=== PATIENT | male | born 2000 | race Caucasian/White ===

== ENCOUNTER 2020-08-12 02:03 | Emergency (ER) | payer OTHER ==
[~2020-08-12] VITALS: Ht 175.3 cm; Wt 100.9 kg
[2020-08-12] MEDS ORDERED: MORPHINE SULFATE 2 MG/ML DISP.SYRIN. IM ONE (02:30)
[2020-08-12] MEDS ORDERED: MORPHINE SULFATE 4 MG/ML DISP.SYRIN. IM ONE (02:30)
[2020-08-12] MEDS ORDERED: HYDR-2155 PO (02:37)
--- NOTE | 2020-08-12 02:37 | PHYS DOC ---
Adult General HPI HPI Patient is an otherwise healthy 20-year-old male, in the who presents to the emergency department with a chief complaint of right leg pain, 7 out of 10, dull and achy in nature that starts at his right outer hip and goes down to his right knee. States he was exercising/running just before coming into the [facility] [facility] department for training, and stepped wrong and a little hole ground and twisted his leg. States he did not hear anything pop or break but says he twisted if he had the pain described. States he is able to put weight on it but it causes him some pain. Denies any other injuries. Review of Systems Review of Systems Review of systems otherwise unremarkable except noted in HPI Allergies Allergies Allergies Coded Allergies Type Severity Reaction Last Updated Verified No Known Drug Allergies 08/12/20 No Physical Exam Physical Exam Constitutional: Well developed, well nourished, no acute distress, non-toxic appearance. [] HENT: Normocephalic, atraumatic, Neck: Normal range of motion, no tenderness, Cardiovascular:Heart rate regular rhythm, no murmur [] Lungs & Thorax: Bilateral breath sounds clear to auscultation [] Abdomen: soft, no tenderness, no masses, no pulsatile masses. [] Skin: Warm, dry, no erythema, no rash. [] Back: No tenderness, Extremities: Right lower extremity starting at proximal posterior thigh radiating down to the back of the right knee tenderness on palpation. Able to extend actively and passively but with pain in the same area. Able to flex without issue and states it is more comfortable flexed. No obvious bruising or deformities. Neurovascular exam intact. Neurologic: Alert and oriented X 3, no focal deficits noted. [] Psychologic: Affect normal, judgement normal, mood normal. [] EKG EKG [] Radiology/Procedures Radiology/Procedures [] Heart Score C/O Chest Pain: No Risk Factors: Risk Factors: DM, Current or recent (<one month) smoker, HTN, HLP, family history of CAD, obesity. Risk Scores: Risk Factors: DM, Current or recent (<one month) smoker, HTN, HLP, family history of CAD, obesity. Course & Med Decision Making Course & Med Decision Making Patient is a 20-year-old male who presents with right lower extremity pain after an injury while running/training Vital signs notable for hypertension. Physical exam noted above. Patient given morphine for pain. Imaging with no acute osseous abnormalities. Exam suggestive of muscle/tendon, or soft tissue injury. Placed in a knee immobilizer and given crutches. Discussed pain management at home. Gave advice on protecting injury. Advised to call [facility] care [facility] for second morning to update on ED visit and set up a follow-up for MRI. Gave contact information for [facility] and advised to call first thing in the morning to set up a follow-up visit for MRI. Gave return precautions to the emergency department. Patient grateful, verbalized understanding and agreed with plan of discharge. Dragon Disclaimer Dragon Disclaimer This electronic medical record was generated, in whole or in part, using a voice recognition dictation system. Departure Departure: Impression: Primary Impression: Right leg pain Disposition: HOME / SELF CARE / HOMELESS Condition: IMPROVED Referrals: PCP,UNKNOWN (PCP) AMPARO HERNANDEZ MD Patient Instructions: Cervical Strain and Sprain with Rehab-Sports[facility], Groin Strain, Hamstring Strain, Joint Sprain, Muscle Tear, Tendon Injury Additional Instructions: Thank you for coming into the emergency department tonight and allowing us to take care of you. Please read all of the attached information very carefully. Please wear your knee immobilizer at all times to provide pain relief and protection. If you need to walk please use your crutches at all times. You can use Tylenol and ibuprofen as well as ice at home for your base pain control. Please use your prescription pain medicine for breakthrough pain only. As discussed, please call your primary care physician immediately in the morning to update on ED visit and set up a follow-up as soon as possible to discuss need for outpatient MRI and follow-up with orthopedic surgery. Understand [place] but the [facility] group is available to take care of you. You can call them first thing in the morning at [phone] to discuss your ED visit and set up a follow-up as soon as you can to discuss need for MRI and further evaluation treatment. Please come back to the ED with new or concerning symptoms as discussed. Scripts Hydrocodone Bit/Acetaminophen (HYDROCODONE-APAP 5-325 ) 1 Each Tablet 1 TAB PO TID PRN for leg pain for 5 Days, #15 TAB 0 Refills Prov: CONDRA,ROSIBEL W MD 08/12/20 ROSIBEL FARFAN MD Aug 12, 2020 02:37
[2020-08-12 02:55] VITALS: BP 157/90
--- NOTE | 2020-08-12 03:12 | RAD ---
XR FEMUR_RIGHT, XR KNEE 3 VIEWS_RT, XR BILATERAL HIP (WITH OR WITHOUT PELVIS) 2 VIEWS_RIGHT DATE: 08/12/2020 2:34 AM INDICATION: Pain, fall COMPARISON: None. FINDINGS: Bones: There is no evidence of acute fracture or dislocation. Joints: The joint spaces are normal. There is no joint effusion. Miscellaneous: None. IMPRESSION: No evidence of acute fracture. Electronically signed by: Lon Sarabia MD (08/12/2020 3:09 AM) SILAS
== END 2020-08-12 03:16 | disposition home or self-care (01) ==
LOC: ER 02:03
DX: M79.604 Pain in right leg (principal)
CPT/HCPCS: 29505; 73502; 73552; 73562; 96372; 99284; J2270

== ENCOUNTER 2020-12-31 05:43 | Emergency (ER) | payer OTHER ==
[~2020-12-31] VITALS: Ht 172.7 cm; Wt 104.0 kg
[~2020-12-31 05:43] MED LIST: HYDR-2155 PO
--- NOTE | 2020-12-31 05:46 | PHYS DOC ---
Past History Past Medical History: No Pertinent History Past Surgical History: No Surgical History Alcohol Use: Occasionally General Adult HPI: HPI: ".. I was lifting weights.. and not really lifting anything heavy... I just bent over.. and I got this pain in my lower back..and it got worse..and now the pain is running down my Rt. leg..." Patient is a 20 year old male [facility] who presents with above hx and complaints of back pain. Patient localizes the pain along his right sciatic nerve. Pain is worse with straight leg lift on the right. Pain is reproducible with bending and [id number] movements. Patient denies any problems with defecation or urination. Patient states most difficult movement or getting up from a sitting position because of back spasms. Patient denies any history of immunosuppression. No recent travel overseas assignments. No specific ill contacts. No history of fever or chills. Is up-to-date with vaccinations. Patient normally follows at [place]. Review of Systems: Review of Systems: Constitutional: Denies fever or chills Eyes: Denies change in visual acuity HENT: Denies nasal congestion or sore throat Respiratory: Denies cough or shortness of breath Cardiovascular: Denies chest pain or edema GI: Denies abdominal pain, nausea, vomiting, bloody stools or diarrhea : Denies dysuria Musculoskeletal: Complains of back pain Integument: Denies rash Neurologic: Denies headache, focal weakness or sensory changes Endocrine: Denies polyuria or polydipsia Lymphatic: Denies swollen glands Psychiatric: Denies depression or anxiety Family History: Family History: Noncontributory Current Medications: Current Meds: See nursing for home meds Allergies: Allergies: Allergies Coded Allergies Type Severity Reaction Last Updated Verified No Known Drug Allergies 08/12/20 No Physical Exam: PE: Constitutional: Well developed, well nourished, in acute distress, non-toxic appearance. [] HENT: Normocephalic, atraumatic, bilateral external ears normal, oropharynx moist, no oral exudates, nose normal. [] Eyes: PERRLA, EOMI, conjunctiva normal, no discharge. [] Neck: Normal range of motion, no tenderness, supple, no stridor. [] Cardiovascular:Heart rate regular rhythm, no murmur [] Lungs & Thorax: Bilateral breath sounds clear to auscultation [] Abdomen: Bowel sounds normal, soft, no tenderness, no masses, no pulsatile masses. No saddle loss. No sensation loss in groin area. Circumcised male cycles descended. Skin: Warm, dry, no erythema, no rash. [] Back: Lumbar sacral back spasms and palpable tenderness of right sciatic nerve., no CVA tenderness. [] Extremities: No tenderness, no cyanosis, no clubbing, ROM intact, no edema. [] Neurologic: Alert and oriented X 3, normal motor function, normal sensory function, no focal deficits noted. [] Psychologic: Affect anxious, judgement normal, mood normal. [] EKG: EKG: [] Radiology/Procedures: Radiology/Procedures: X-ray deferred by patient at this time. Request to be treated clinically [] Heart Score: C/O Chest Pain: N/A Risk Factors: Risk Factors: DM, Current or recent (<one month) smoker, HTN, HLP, family history of CAD, obesity. Risk Scores: Score 0 - 3: 2.5% MACE over next 6 weeks - Discharge Home Score 4 - 6: 20.3% MACE over next 6 weeks - Admit for Clinical Observation Score 7 - 10: 72.7% MACE over next 6 weeks - Early Invasive Strategies Course & Med Decision Making: Course & Med Decision Making Pertinent Labs and Imaging studies reviewed. (See chart for details). Patient use ice packs as needed for the next 3 days. After 3 days if no reinjury may advance to moist heat. Take Tylenol and ibuprofen for pain. Take Flexeril 10 mg up to 3 times a day for muscle spasms. Follow-up primary care. Return if any concerns. If pain is persistent consider radiographic evaluation. Impression: 1. Facet syndrome 2. Right sciatic nerve pain [] Dragon Disclaimer: Dragon Disclaimer: This electronic medical record was generated, in whole or in part, using a voice recognition dictation system. Departure Departure: Referrals: PCP,UNKNOWN (PCP) Scripts Cyclobenzaprine Hcl (CYCLOBENZAPRINE HCL) 10 Mg Tablet 10 MG PO TID PRN PRN for MUSCLE SPASMS, #30 TAB Prov: TYRESE LIM MD 12/31/20 Ibuprofen (Ibu) 600 Mg Tablet 600 MG PO QIDAFTMEAL PRN for PAIN, #120 TAB Prov: TYRESE LIM MD 12/31/20 [place] Disclaimer This chart was dictated in whole or in part using Voice Recognition software in a busy, high-work load, and often noisy Emergency Department environment. It may contain unintended and wholly unrecognized errors or omissions. TYRESE LIM MD Dec 31, 2020 05:46
[2020-12-31 05:50] VITALS: BP 134/79
[2020-12-31] MEDS ORDERED: IBUP-571 PO (06:08)
[2020-12-31] MEDS ORDERED: CYCL10TA19 PO (06:08)
[2020-12-31] MEDS ORDERED: methylPREDNISolone ACETATE 40 MG/ML VIAL. IM ONE (06:15)
[2020-12-31] MEDS ORDERED: KETOROLAC 60 MG/2 ML VIAL. IM ONE (06:15)
[2020-12-31] MEDS ORDERED: ORPHENADRINE CITRATE 60 MG/2 ML VIAL. IM ONE (06:15)
== END 2020-12-31 06:20 | disposition home or self-care (01) ==
LOC: ER 05:43
DX: M54.41 Lumbago with sciatica, right side (principal); M47.897 Other spondylosis, lumbosacral region
CPT/HCPCS: 96372; 99284; J1030; J1885; J2360